=== PATIENT | female | born 1985 | race Caucasian/White ===

== ENCOUNTER 2017-06-16 15:25 | Emergency (ER) | payer MEDICAID, OTHER ==
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
[2017-06-16 15:47] VITALS: BP 152/82
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
[2017-06-16] MEDS ORDERED: MOTRIN PO ONE (20:53)
== END 2017-06-16 21:51 | disposition home or self-care (01) ==
LOC: ED 15:25
DX: S13.4XXA Sprain of ligaments of cervical spine, initial encounter (principal); S29.019A Strain of muscle and tendon of unspecified wall of thorax, initial encounter; V89.2XXA Person injured in unspecified motor-vehicle accident, traffic, initial encounter; Y93.89 Activity, other specified; Y92.89 Other specified places as the place of occurrence of the external cause; Y99.8 Other external cause status
CPT/HCPCS: 72070; 99283

== ENCOUNTER 2018-10-19 20:12 | Emergency (ER) | payer OTHER ==
[2018-10-19] MEDS ORDERED: TORADOL IM ONE (21:10)
[2018-10-19] MEDS ORDERED: FLEXERIL PO ONE (21:10)
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
[2018-10-19] MEDS ORDERED: TORADOL ONE (21:18)
[2018-10-19 22:27] VITALS: BP 140/52
== END 2018-10-19 22:26 | disposition home or self-care (01) ==
LOC: ED 20:12
DX: S39.012A Strain of muscle, fascia and tendon of lower back, initial encounter (principal); V89.2XXA Person injured in unspecified motor-vehicle accident, traffic, initial encounter; Y93.89 Activity, other specified; Y99.8 Other external cause status; Y92.410 Unspecified street and highway as the place of occurrence of the external cause
CPT/HCPCS: 96372; 99282; J1885